=== PATIENT | female | born 1980 | race Caucasian/White ===

== ENCOUNTER 2017-01-17 14:34 | Emergency (ER) | payer SELFPAY ==
[~2017-01-17] VITALS: Ht 160 cm; Wt 54.7 kg
[2017-01-17 16:10] LABS: MCV 91.4 FL (83-99); MEAN PLAT.VOLUME 10.9 uM^3 (9.5-12.4); PLATELET COUNT 207 K/uL (156-360); RBC DIS.WIDTH-CV 12.5 % (11.8-14.6); RBC DIS.WIDTH-SD 41.7 % (39-53); RED BLOOD COUNT 5.25 M/uL (3.80-5.20); WHITE BLOOD COUNT 6.4 K/uL (4.1-10.2)
[2017-01-17 16:19] LABS: CHLORIDE 104 mEq/L (99-109); POTASSIUM 4.3 mEq/L (3.7-5.4); SODIUM 140 mEq/L (136-147)
[2017-01-17 16:20] LABS: ADD MIUA? YES; BILIRUBIN NEGATIVE; BLOOD NEGATIVE; COLOR YELLOW ((YELLOW)); GLUCOSE (STRIP) NEGATIVE; KETONES 5; LEUKOCYTES NEGATIVE; NITRITE NEGATIVE; PROTEIN (STRIP) 30; SPECIFIC GRAVITY 1.031 (1.000-1.030); UROBILINOGEN 0.2 MG/DL (0.2-1.0)
[2017-01-17 16:21] LABS: GLUCOSE 84 mg/dL (70-99)
[2017-01-17 16:22] LABS: ANION GAP 10 MEQ/L (2-14)
[2017-01-17 16:23] LABS: TOTAL BILIRUBIN 0.7 mg/dL (0.0-1.0)
[2017-01-17 16:24] LABS: ALKALINE PHOSPHATASE 60 IU/L (3-129)
[2017-01-17 16:25] LABS: GFR ESTIMATE (CALCULATED) > 59 mL/min/
[2017-01-17 16:26] LABS: UREA NITROGEN (BUN) 16 mg/dL (9-23)
[2017-01-17 16:29] LABS: BACTERIA RARE /HPF; EPITHELIAL CELLS RARE /HPF; MUCUS 2+ /LPF; RED BLOOD CELLS 0-5 /HPF (0-5); UCUL ADDED? NO; WHITE BLOOD CELLS 0-5 /HPF (0-5)
[2017-01-17 16:39] LABS: QUANTITATIVE HCG < 4.0 MIU/ML
[2017-01-17] MEDS ORDERED: CITRATE OF MAG296 ML PO (19:20)
[2017-01-17] MEDS ORDERED: BENTYL20 MG PO (19:20)
[2017-01-17 19:33] VITALS: BP 127/72
== END 2017-01-17 19:35 | disposition home or self-care (01) ==
LOC: EME 14:34
DX: R10.32 Left lower quadrant pain (principal); F17.200 Nicotine dependence, unspecified, uncomplicated
CPT/HCPCS: 74176; 76856; 80053; 81003; 84702; 85027; 99281; 99284; J2270; J2405; J7030